=== PATIENT | male | born 1985 | race Caucasian/White ===

== ENCOUNTER 2016-08-09 20:34 | Emergency (ER) | payer BC ==
[~2016-08-09] VITALS: Ht 170.2 cm; Wt 77.1 kg
[2016-08-09] MEDS ORDERED: Albuterol ud Inhalation HHN ONE ×2 (21:00→21:45)
[2016-08-09] MEDS ORDERED: Ipratropium 0.02% Inh Soln 2.5ml UD HHN ONE (21:00)
[2016-08-09] MEDS ORDERED: PredniSONE 20mg tab ORAL ONE (21:00)
[2016-08-09] MEDS ORDERED: ALBUTEROL SULF8.5 GM INH (21:02)
[2016-08-09] MEDS ORDERED: PREDNISONE20 MG ORAL (21:02)
[2016-08-09] MEDS ORDERED: ADVAIR 100-501 EACH INH (21:02)
--- NOTE | 2016-08-09 21:02 | Emergency Room Report ---
History of Present Illness General Chief Complaint: Flu Like Symptoms Source: Patient Present Illness HPI This is a 31-year-old male with a long-standing history of asthma. He presents with chief complaint of coughing congestion and wheezing for the last 2 to 3 days. Out of his inhaler for the last week. No fever chills but no nausea no vomiting. Worse with exertion. Worse with coughing. Better with rest. Similar symptoms in the past. Allergies: Coded Allergies: Cat Dander (Verified Allergy, Unknown, 08/09/16) PENICILLINS (Verified Allergy, Unknown, 08/09/16) Patient History Past Medical History: see triage record, old chart reviewed, asthma Past Surgical History: other Pertinent Family History: none Social History: Denies: drug use Immunizations: other Reviewed Nursing Documentation: PMH: Agreed, PSxH: Agreed Nursing Documentation-PMH Hx Asthma: Yes Review of Systems Eye: Denies: blurred vision, eye pain ENT: Reports: nose congestion, Denies: ear pain, throat swelling Respiratory: Reports: cough, shortness of breath, wheezing Cardiovascular: Denies: chest pain, palpitations Gastrointestinal: Denies: abdominal pain, diarrhea, nausea, vomiting Musculoskeletal: Denies: back pain, joint pain Skin: Denies: rash Neurological: Denies: headache, numbness Endocrine: Denies: increased thirst, increased urine Hematologic/Lymphatic: Denies: easy bruising All Other Systems: negative except mentioned in HPI Physical Exam Vital Signs Date Time Temp Pulse Resp B/P Pulse Ox O2 Delivery O2 Flow Rate FiO2 08/09/16 20:36 99.1 105 18 141/97 95 Room Air vitals unremarkable Sp02 EP Interpretation: reviewed, normal General Appearance: well appearing, no apparent distress, alert Head: normocephalic, atraumatic Eyes: bilateral eye EOMI, bilateral eye PERRL ENT: hearing grossly normal, normal pharynx Neck: full range of motion, supple, no meningismus Respiratory: chest non-tender, accessory muscle use, wheezing Cardiovascular #1: regular rate, rhythm, no murmur Gastrointestinal: normal bowel sounds, non tender, no mass, no organomegaly, no bruit, non-distended Musculoskeletal: back normal, gait/station normal, normal range of motion Psychiatric: mood/affect normal Skin: warm/dry Medical Decision Making Diagnostic Impression: Primary Impression: Asthma exacerbation ER Course pt with asthma exacerbation. better now. still with slight wheeze. said that is normal for him. felt like he is almost back to baseline and wants to go home. no e/o sepsis, pneumonia, PE, dissection, ACS to name a few. Last Vital Signs Date Time Temp Pulse Resp B/P Pulse Ox O2 Delivery O2 Flow Rate FiO2 08/09/16 20:36 99.1 105 18 141/97 95 Room Air Status: improved Disposition: HOME, SELF-CARE Condition: Stable Scripts Prednisone* (PREDNISONE*) 20 Mg Tablet 60 MG ORAL DAILY, #12 TAB Prov: GASPER GUILLEN M.D. 08/09/16 Albuterol Sulfate* (ALBUTEROL SULFATE MDI*) 8.5 Gm Hfa.aer.ad 2 PUFF INH Q4H Y for cough/wheezing, #1 EA 0 Refills Prov: GASPER GUILLEN M.D. 08/09/16 Fluticasone/Salmeterol (Advair 100-50 Diskus) 1 Each Blst.w.dev 1 PUFF INH TWICE A DAY, #1 EA Prov: GASPER GUILLEN M.D. 08/09/16 Additional Instructions: Followup with your DrOnofre in 2-5 days. Return if symptom worsen. GASPER GUILLEN M.D. Aug 09, 2016 21:02
[2016-08-09 22:24] VITALS: BP 135/86
[2016-08-09 22:25] VITALS: BP 141/97
== END 2016-08-09 22:27 | disposition home or self-care (01) ==
LOC: EMR 21:20
DX: J45.901 Unspecified asthma with (acute) exacerbation (principal); Z88.0 Allergy status to penicillin
CPT/HCPCS: 94640; 94664; 99284

== ENCOUNTER 2017-04-11 10:41 | Emergency (ER) | payer BC, MEDICAID ==
[~2017-04-11] VITALS: Ht 170.2 cm; Wt 77.1 kg
[~2017-04-11 10:41] MED LIST: ADVAIR 100-501 EACH INH; ALBUTEROL SULF8.5 GM INH; PREDNISONE20 MG ORAL
[2017-04-11] MEDS ORDERED: NEXIUM40 MG ORAL (10:57)
[2017-04-11] MEDS ORDERED: GABAPENTIN800 MG ORAL (10:57)
[2017-04-11] MEDS ORDERED: LIDOCAINE700 M1 TP (11:34)
[2017-04-11] MEDS ORDERED: Ketorolac 30mg Inj IM ONE (11:45)
--- NOTE | 2017-04-11 11:59 | Emergency Room Report ---
History of Present Illness General Chief Complaint: Pain Source: Patient Present Illness HPI 32-year-old male with history of asthma, presenting with right-sided rib pain for one week. Patient states he just got over a cold and he was coughing a lot for the last 2 weeks. States he has pain when he coughs or when he twists. No shortness of breath. No fever no chills. He states that he finished a Z-Clemente last week Allergies: Coded Allergies: Cat Dander (Verified Allergy, Unknown, 08/09/16) PENICILLINS (Verified Allergy, Unknown, 08/09/16) Patient History Past Medical History: see triage record Past Surgical History: none Pertinent Family History: none Reviewed Nursing Documentation: PMH: Agreed, PSxH: Agreed Nursing Documentation-PMH Hx Asthma: Yes Review of Systems All Other Systems: negative except mentioned in HPI Physical Exam Vital Signs Date Time Temp Pulse Resp B/P (MAP) Pulse Ox O2 Delivery O2 Flow Rate FiO2 04/11/17 10:51 97.7 90 18 152/90 96 Room Air 97.7 Sp02 EP Interpretation: reviewed, normal General Appearance: normal inspection, well appearing, no apparent distress, alert, GCS 15, non-toxic Head: normocephalic, atraumatic Eyes: bilateral eye normal inspection, bilateral eye PERRL, bilateral eye EOMI ENT: normal ENT inspection, normal pharynx, normal voice, moist mucus membranes Neck: normal inspection, full range of motion, supple Respiratory: normal inspection, lungs clear, normal breath sounds, no respiratory distress, no retraction, no wheezing, speaking full sentences, chest symmetrical Cardiovascular #1: normal inspection, regular rate, rhythm, no edema, normal capillary refill, other - Very mild right-sided rib tenderness Cardiovascular #2: 2+ radial (R), 2+ radial (L) Gastrointestinal: normal inspection, non tender, soft, non-distended, no guarding Genitourinary: no CVA tenderness Musculoskeletal: normal inspection, back normal, normal range of motion, non- tender Neurologic: normal inspection, alert, oriented x3, responsive, motor strength/ tone normal, sensory intact, normal gait, speech normal Psychiatric: normal inspection, judgement/insight normal, memory normal Skin: normal inspection, normal color, no rash, warm/dry, well hydrated, normal turgor Medical Decision Making Diagnostic Impression: Primary Impression: Costochondritis, acute Additional Impression: Post-viral cough syndrome ER Course 32-year-old male, right-sided rib pain, worse when he coughs or moves DDX: Likely secondary to post viral cough syndrome/musculoskeletal pain Rule out pneumonia Plan: Chest x-ray ER course: Patient has remained stable during ED stay. Nontoxic, feels much better Repeat lung exam normal Disposition: Patient is to be discharged to home. Prescriptions given are lidocaine patch Patient is instructed to follow up with their primary care doctor within 5 days. Strict return precautions discussed with patient such as fever, chills, worsening/severe pain, chest pain, SOB, nausea, vomiting, which may indicate severe illness. Patient verbalizes understanding and agrees with plan. Please note that this Emergency Department Report was dictated using [employer] aircraft mechanic technology software, occasionally this can lead to erroneous entry secondary to interpretation by the dictation equipment Chest X-ray CXR: Ordered: Yes 1 view Indication: Chest pain EP interpretation: Yes Interpretation: No consolidation, no effusion, no PTX, no acute cardiopulmonary disease Impression: No acute disease Electronically signed by Thelma Vargas MD Last Vital Signs Date Time Temp Pulse Resp B/P (MAP) Pulse Ox O2 Delivery O2 Flow Rate FiO2 04/11/17 11:50 97.7 04/11/17 10:51 90 18 152/90 96 Room Air Disposition: HOME, SELF-CARE Condition: Improved Scripts Lidocaine (Lidocaine) 1 Each Adh..patch 700 MG TP EVERY 12 HOURS for 7 Days, #10 PATCH 0 Refills Prov: Thelma Vargas M.D. 04/11/17 Patient Instructions: Costochondritis, [id number] Thelma Vargas M.D. Apr 11, 2017 11:59
[2017-04-11 12:05] VITALS: BP 152/90
--- NOTE | 2017-04-11 13:25 | Diagnostic Imaging Report ---
Indication: Cough, pain Technique: One view of the chest Comparison: Findings: Lungs and pleural spaces are clear. Heart size is normal Impression: No acute process
[2017-04-12] MEDS ORDERED: ROBAXIN-750750 MG PO (23:11)
== END 2017-04-11 12:07 | disposition home or self-care (01) ==
LOC: EMR 11:25
DX: M94.0 Chondrocostal junction syndrome [Tietze] (principal); G93.3 Postviral and related fatigue syndromes; J45.909 Unspecified asthma, uncomplicated; Z88.0 Allergy status to penicillin; Z91.048 Other nonmedicinal substance allergy status
CPT/HCPCS: 71045; 96372; 99284; J1885

== ENCOUNTER 2017-04-12 22:29 | Emergency (ER) | payer MEDICAID ==
[~2017-04-12] VITALS: Ht 170.2 cm; Wt 77.1 kg
[~2017-04-12 22:29] MED LIST changes: +GABAPENTIN800 MG ORAL; +LIDOCAINE700 M1 TP; +NEXIUM40 MG ORAL
[2017-04-12 22:39] VITALS: BP 142/93
[2017-04-12] MEDS ORDERED: Ketorolac 30mg Inj IM ONE (23:00)
[2017-04-12] MEDS ORDERED: Methocarbamol 750mg tab ORAL ONE (23:00)
[2017-04-12] MEDS ORDERED: ROBAXIN-750750 MG PO (23:11)
[2017-04-12 23:24] VITALS: BP 142/93
--- NOTE | 2017-04-12 23:51 | Emergency Room Report ---
History of Present Illness General Chief Complaint: Pain Source: Patient Present Illness HPI 32-year-old male, presenting with right-sided rib/chest pain. Going on for about 4 days. States it happened after he was sick and he was coughing a lot. Patient states that he has not been pain when he is just sitting still. 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 Denies any chest pain, shortness of breath palpitations. No fever no chills. No trauma. States that he has been using lidocaine patch which has only slightly helped Allergies: Coded Allergies: Cat Dander (Verified Allergy, Unknown, 08/09/16) PENICILLINS (Verified Allergy, Unknown, 08/09/16) Patient History Past Medical History: see triage record Past Surgical History: none Pertinent Family History: none Reviewed Nursing Documentation: PMH: Agreed, PSxH: Agreed Nursing Documentation-PMH Hx Asthma: Yes Review of Systems All Other Systems: negative except mentioned in HPI Physical Exam Vital Signs Date Time Temp Pulse Resp B/P (MAP) Pulse Ox O2 Delivery O2 Flow Rate FiO2 04/12/17 22:33 97.6 84 20 142/93 98 Room Air 97.5 Sp02 EP Interpretation: reviewed, normal General Appearance: alert, GCS 15, non-toxic, mild distress Head: normocephalic, atraumatic Eyes: bilateral eye normal inspection, bilateral eye PERRL, bilateral eye EOMI ENT: normal ENT inspection, normal pharynx, normal voice, moist mucus membranes Neck: normal inspection, full range of motion, supple Respiratory: normal inspection, lungs clear, normal breath sounds, no respiratory distress, no retraction, no wheezing, speaking full sentences, chest symmetrical Cardiovascular #1: normal inspection, regular rate, rhythm, no edema, normal capillary refill Cardiovascular #2: 2+ radial (R), 2+ radial (L) Gastrointestinal: normal inspection, non tender, soft, non-distended, no guarding Genitourinary: no CVA tenderness Musculoskeletal: other - Right-sided chest wall tender to palpation. Full range of motion Neurologic: normal inspection, alert, oriented x3, responsive, motor strength/ tone normal, sensory intact, normal gait, speech normal Psychiatric: normal inspection, judgement/insight normal, memory normal Skin: normal inspection, normal color, no rash, warm/dry, well hydrated, normal turgor Medical Decision Making Diagnostic Impression: Primary Impression: Musculoskeletal pain ER Course 32-year-old male with right rib pain DDX: Likely musculoskeletal pain Chest x-ray performed 2 days ago no abnormalities Plan: Pain control ER course: Patient has remained stable during ED stay. Feels much better with pain medication Disposition: Patient is to be discharged to home. Prescriptions given are Robaxin Patient is instructed to follow up with their primary care doctor within 5 days. Strict return precautions discussed with patient such as fever, chills, worsening/severe pain, chest pain, SOB, nausea, vomiting, which may indicate severe illness. Patient verbalizes understanding and agrees with plan. Please note that this Emergency Department Report was dictated using [employer] technology software, occasionally this can lead to erroneous entry secondary to interpretation by the dictation equipment Last Vital Signs Date Time Temp Pulse Resp B/P (MAP) Pulse Ox O2 Delivery O2 Flow Rate FiO2 04/12/17 23:24 97.5 84 20 142/93 98 Room Air 207.5 Disposition: HOME, SELF-CARE Condition: Improved Scripts Methocarbamol* (ROBAXIN-750*) 750 Mg Tablet 750 MG PO QID, #28 TAB 0 Refills Prov: Thelma Vargas M.D. 04/12/17 Patient Instructions: Musculoskeletal Pain Thelma Vargas M.D. Apr 12, 2017 23:51
== END 2017-04-12 23:25 | disposition home or self-care (01) ==
LOC: EMR 22:46
DX: R07.89 Other chest pain (principal); R07.81 Pleurodynia; Z88.0 Allergy status to penicillin
CPT/HCPCS: 96372; 99284; J1885